=== PATIENT | male | born 1980 | race Caucasian/White ===

== ENCOUNTER 2021-04-27 15:03 | Inpatient (IN) | payer OTHER ==
[~2021-04-27] VITALS: Ht 177.8 cm; Wt 81.2 kg
[2021-04-27] VITALS (17 sets, daily range): BP systolic 100–176; BP diastolic 59–93
--- NOTE | ~2021-04-27 | HC ---
[facility] [place] [address] CONSULTATION Name: HENRY FREIRE Noah Room #: 170-8 ADM IN ..#: [id number] Admission: 04/27/21 Attend Phys: Bertram Reveles MD Discharge: Date of : 84 Report #: [id number] THIS REPORT FOR: cc: FAM - Family physician unknown FAM - Family physician unknown Hammad Escobar MD ~ cc: Ryan Lopez MD EMERGENCY ROOM CONSULTATION REASON FOR CONSULTATION: Airway obstruction. HISTORY OF PRESENT ILLNESS: The patient is a 40-year-old male who presented to the Emergency Room with inability to breathe and shortness of breath. The history that I gleaned from the Emergency Room physician is that the patient did not exhibit stridor, but in fact was not moving air. His oxygen saturation on room air when first recorded was approximately 40%. With a nonrebreathing supplemental oxygen mask, they were able to get the oxygen up to about 90 temporarily and then he fully obstructed. The Emergency Room physician attempted to intubate him, but there was a mass obstructing the larynx, so he did an emergency cricothyrotomy. A #6 endotracheal tube was inserted into the trachea. The patient has been successfully ventilated since then with oxygen saturations in the 100% range with supplemental oxygen and ventilator support. Apparently, he began to wake up and began to thrash, so he was given intravenous sedation and paralysis to avoid dislodging the airway. I was called to see him regarding this situation. At the time of my assessment, the patient was fully sedated and nonresponsive on ventilator support. I did take some history from the parents. 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 He is not , but single. He has been in generally good health. He smokes an unknown number of cigarettes per day. He does not reportedly use any recreational drugs and drinks alcohol socially. He has had hoarseness for as long as 8 years. The parents encouraged him to seek medical attention. Apparently about 2 years ago, he saw an door repairman who suggested that he stop smoking before he have a mass removed from the voice box. This is how the parents recall the conversation going. He had not been seen since that time by a physician as far as they know. PHYSICAL EXAMINATION: GENERAL: The patient is obtunded and sedated on ventilator support. NECK: A #6 endotracheal tube secured to the neck through the cricothyroid membrane. LABORATORY DATA: CBC: Hemoglobin 14.1, WBC 19.3. Chemistry [place] [address] CONSULTATION Name: HENRY FREIRE Room #: 170-8 [facility] IN [facility]#: [id number] Admission: 04/27/21 Attend Phys: Bertram Reveles MD Discharge: Date of : 84 Report #: [id number] MEDICATIONS: None reported by the family. ASSESSMENT: 1. Upper airway obstruction, apparently from hypopharyngeal or laryngeal mass, etiology uncertain. 2. Cricothyrotomy in place with stable airway. RECOMMENDATIONS: 1. We will take the patient to the operating room to convert to a traditional tracheostomy and remove the cricothyrotomy tube. 2. We will perform direct laryngoscopy and upper airway endoscopy as needed to assess the source of obstruction. 3. We will likely order CT scan once the patient is stabilized. 4. The patient will need to be cared for in the ICU until this situation is handled. By: [id number] Hammad Escobar MD /nt
--- NOTE | ~2021-04-27 | O ---
[facility] [place] [address] OPERATIVE REPORT Name: HENRY FREIRE Noah Room #: 170-8 ADM IN .R.#: [id number] Admission: 04/27/21 Attend Phys: Bertram Reveles MD Discharge: Date of : 84 Report #: [id number] THIS REPORT FOR: cc: FAM - Family physician unknown FAM - Family physician unknown Hammad Escobar MD ~ DATE OF SERVICE: 04/27/2021 SURGEON: Hammad Escobar MD PREOPERATIVE DIAGNOSES: 1. Airway obstruction, status post cricothyroidotomy. 2. Obstructive laryngeal mass. POSTOPERATIVE DIAGNOSES: 1. Airway obstruction, status post cricothyroidotomy. 2. Obstructive laryngeal mass. OPERATIVE PROCEDURES: 1. Revision tracheostomy and removal of cricothyroidotomy. 2. Direct laryngoscopy, biopsy and debulking of right sided laryngeal mass. 3. Rigid esophagoscopy. 4. Rigid bronchoscopy. ANESTHESIA: General. ESTIMATED BLOOD LOSS: 5 mL INDICATIONS FOR SURGERY: The patient is a 40-year-old male who presented to the Emergency Room with airway distress and required an emergent cricothyroidotomy by the emergency room physician due to an obstructive laryngeal mass. The patient had emergent cricothyroidotomy for management of his airway obstruction. I was consulted to see him. I advised that he be taken to the operating room for revision of the cricothyroidotomy and formal tracheostomy as well as laryngoscopy examination under anesthesia. This was discussed with the patient's family as the patient was not able to provide consent since he had been sedated and was on the ventilator. The parents gave consent. DESCRIPTION OF PROCEDURE: The patient was placed on the operating table in supine position. He was given general anesthesia through the cricothyroidotomy tube. I then performed a direct laryngoscopy with a GlideScope. There was a large obstructing mass within the endolarynx. Given what I was seeing, it was appropriate to move forward with revising the tracheostomy as planned. [address] [address] OPERATIVE REPORT Name: HENRY FREIRE Room #: 170-8 [facility] IN [facility].#: [id number] Admission: 04/27/21 Attend Phys: Bertram Reveles MD Discharge: Date of : 84 Report #: [id number] The suprasternal skin was injected with lidocaine with epinephrine. The neck was then prepped and draped in a sterile fashion. A 2 cm horizontal incision was made 2 cm above the sternal notch. I dissected through skin and subcutaneous tissue. I then split the strap muscles in the midline with cautery and scissor dissection. I retracted the strap muscles laterally and exposed the thyroid isthmus. Some of the thyroid isthmus was then divided with cautery dissection and some pretracheal fat was dissected off the trachea. This exposed the trachea just below the thyroid isthmus. I then proceeded to excise the anterior aspect of the tracheal ring with an 11 blade knife. I estimated this was probably about the fifth tracheal ring. The anterior segment of this ring was removed. I was able to view the endotracheal tube within the trachea. It was slowly pulled back from the cricothyroidotomy. A #6 Shiley cuffed fenestrated tracheostomy tube was then inserted through the tracheostomy into the trachea. The cuff was inflated. The endotracheal tube was withdrawn. The patient was then successfully ventilated with the anesthesia circuit through the tracheostomy tube. The tracheostomy tube was secured to the skin with 2-0 nylon sutures and to the neck with tracheostomy ties. I then placed a single 2-0 nylon suture in the cricothyroidotomy site to minimize the bleeding and applied a dressing to the right cricothyroidotomy site. This completed the revision of the tracheostomy with division of the thyroid isthmus. I then proceeded with endoscopy. Direct laryngoscopy was then performed with a Dedo laryngoscope. There was a large endolaryngeal mass. I lifted up the epiglottis and could feel this firm mass within the larynx. I suspended the larynx with Lewy suspension device and then palpated and manipulated the mass. The mass appeared to be arising from the right supraglottic larynx as I was able to visualize a normal left vocal cord beneath it and actually the right vocal cord even appeared somewhat normal, as this was arising from the area of about the right false vocal cord extending into the larynx. Several photographs of this were taken. I then used a large cup biopsy forceps to take several biopsies of this mass. It was firm, but soft and not easily entered with the cup biopsy forceps. These were sent in formalin and some were sent fresh. 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 I then proceeded to perform a rigid esophagoscopy. The esophagus looked normal all the way down to the distal third of the esophagus. I decompressed the stomach by inserting an oral gastric tube down through the scope into the stomach and suctioned out the gastric contents. I then introduced a rigid bronchoscope around the mass through the larynx into the subglottic larynx. The subglottic larynx and upper trachea looked normal to the level of the tracheostomy tube. I, of course, was not able to pass the rigid bronchoscope beyond the tracheostomy tube. This completed the procedure. [address] [place] [address] OPERATIVE REPORT Name: HENRY FREIRE Room #: 170-8 [facility] IN ..#: [id number] Admission: 04/27/21 Attend Phys: Bertram Reveles MD Discharge: Date of : 84 Report #: [id number] The patient was awakened in the operating room, taken to recovery room in stable condition. We will get a CT scan of his neck in the morning. He will be cared for in the hospital and when appropriate, we will consider discharge with plans for management of this endolaryngeal mass in the future. By: 1842 192 Hammad Escobar MD /nt
--- NOTE | 2021-04-27 15:25 | NUR ---
ETOMIDATE 20MG GIVEN AT 1527 ROCC 75MG GIVEN AT [address] ET TUBE, CRIC KIT 1530 6.0 ET TUBE PLACED 1531 1 MG ATROPINE GIVEN 1532 XRAY IN ROOM
[2021-04-27 16:12] LABS: CALCIUM 8.6 mg/dL (8.5-10.1); CREATININE 0.9 mg/dL (0.7-1.3); POTASSIUM 4.4 mmol/L (3.5-5.1)
[2021-04-27 16:26] LABS: ALBUMIN 4.1 g/dL (3.4-5.0); TOTAL PROTEIN 8.1 g/dL (6.4-8.2)
--- NOTE | 2021-04-27 16:45 | NUR ---
50MG ROCURONIUM ADMINISTERED
--- NOTE | 2021-04-27 17:16 | NUR ---
CENTRAL LINE PLACEMENT CONFIRMED
[2021-04-27 17:33] LABS: URINE BILIRUBIN NEGATIVE (Negative); URINE BLOOD 2+ (Negative); URINE CLARITY SL CLOUDY; URINE COLOR YELLOW; URINE GLUCOSE-RANDOM* 3+ (Negative); URINE KETONES NEGATIVE (Negative); URINE LEUKOCYTES-REFLEX NEGATIVE (Negative); URINE NITRITE-REFLEX NEGATIVE (Negative); URINE PROTEIN (DIPSTICK) 3+ (Negative); URINE SPECIFIC GRAVITY >= 1.030 (1.005-1.035); URINE UROBILINOGEN 0.2 E.U./dl (0.2-1.0)
[2021-04-27 17:43] LABS: BE(vivo) -4.7 mmol/L (-2 to +3); HCO3 24.5 mmol/L (22.0-26.0); PCO2 62.6 mmHg (35.0-45.0); PO2 82.3 mmHg (80.0-100.0); sO2 93.5 % (92.0-98.0)
[2021-04-27 17:45] LABS: ABSOLUTE NEUTROPHILS 18.3 thou/uL (1.4-8.2); BASOPHILS 0.1 % (0.0-2.0); EOSINOPHILS 0.1 % (0.0-3.0); HEMOGLOBIN 14.1 gm/dL (14.0-18.0); LYMPHOCYTES 3.4 % (24.0-44.0); MCHC 33.6 g/dL (28.0-37.0); MCV 98.2 fL (80.0-100.0); MONOCYTES 1.9 % (1.0-8.0); PLATELET COUNT 212 thou/uL (150-400); POLYS 94.5 % (36.0-66.0); RBC 4.27 mil/uL (4.50-6.00); RDW 13.1 % (10.5-14.5); WBC 19.3 thou/uL (4.0-11.0)
[2021-04-27 17:45] LABS: D-DIMER 3.57 ug/mLFEU (0.19-0.50); INR 1.24; PROTIME 13.4 Seconds (10.5-12.1)
--- NOTE | 2021-04-27 17:52 | NUR ---
[id number] PLACED FOR RESP ARREST
[2021-04-27 19:25] LABS: CASTS None Seen /LPF (None Seen); CRYSTALS None Seen /LPF (None Seen); SQUAMOUS 0-3 Few /LPF (0-3); URINE RBC 3-10 Few /HPF (NONE SEEN); URINE WBC-REFLEX 6-15 Few /HPF (0-5)
--- NOTE | 2021-04-27 20:45 | NUR ---
PT ARRIVED FROM ED AT 1810 ACCOMPANIED BY ANESTHESIA, DR PATRICIA, AND RN IVONNE. PT UNAROUSABLE ON PROPOFOL GTT AT 30 MCG/KG/MIN AND LEVOPHED GTT AT 10 MCG/MIN. REPORT GIVEN TO THIS RN AT BEDSIDE. DR DUENAS CALLED ICU AT 2036 AND SPOKE TO ELVA ENRIQUEZ REGARDING PT'S CASE AND REQUESTED PT'S PARENT S TO BE UPDATED. WILL CONTINUE TO MONITOR.
[2021-04-27 21:18] LABS: BE(vivo) -4.3 mmol/L (-2 to +3); PCO2 39.9 mmHg (35.0-45.0); PO2 276.6 mmHg (80.0-100.0); sO2 99.6 % (92.0-98.0)
[2021-04-28] VITALS (42 sets, daily range): BP systolic 79–128; BP diastolic 40–86
[2021-04-28 05:27] LABS: BE(vivo) 1.3 mmol/L (-2 to +3); HCO3 26.4 mmol/L (22.0-26.0); PCO2 43.6 mmHg (35.0-45.0); PO2 123.9 mmHg (80.0-100.0); sO2 98.4 % (92.0-98.0)
[2021-04-28 06:26] LABS: HEMATOCRIT 42.2 % (42.0-52.0); MCH 32.5 pg (26.0-34.0); MCHC 33.2 g/dL (28.0-37.0); MCV 97.9 fL (80.0-100.0); RBC 4.31 mil/uL (4.50-6.00); WBC 15.5 thou/uL (4.0-11.0)
[2021-04-28 06:41] LABS: CALCIUM 7.9 mg/dL (8.5-10.1); CREATININE 0.6 mg/dL (0.7-1.3); MAGNESIUM 1.7 mg/dL (1.8-2.4); POTASSIUM 4.4 mmol/L (3.5-5.1)
--- NOTE | 2021-04-28 07:26 | EKG ---
[address] [address] ELECTROCARDIOGRAM REPORT Name: HENRY FREIRE Room #: 240-[facility] IN [facility].#: [id number] Admission: 04/27/21 Attend Phys: Bertram Reveles MD Discharge: Date of : 84 Report #: [id number] [facility] ED Test Date: 2021-04-27 Test Time: 15:17:42 Pat Name: HENRY FREIRE Department: Room: 240 Gender: M [employer]: VEENA : 1980 Requested By: Guy Mensah Order Number: [id number] MD: Hermilo Melendez Measurements Intervals [place] Rate: 116 P: 33 IN: 119 QRS: 6 QRSD: 106 T: 10 QT: 339 QTc: 471 Interpretive Statements Sinus tachycardia Multiform ventricular premature complexes Borderline short IN interval Probable anteroseptal infarct, old No previous ECG available for comparison Electronically Signed On 04-28-2021 7:26:35 ACCOUNTANT CONTROLLER by Hermilo Melendez [email or web address] <ELECTRONICALLY SIGNED> By: Hermilo Melendez MD, [facility] 04/28/21 0726 D: [id number] Hermilo Melendez MD, FACC /EPI
--- NOTE | 2021-04-28 15:49 | 2DMMODE ---
[facility] [place] [address] 2 D/M-MODE ECHOCARDIOGRAM Name: HENRY FREIRE Room #: 240-P ADM IN [facility]#: [id number] Admission: 04/27/21 Attend Phys: Bertram Reveles MD Discharge: Date of : 84 Report #: [id number] THIS REPORT FOR: cc: FAM - Family physician unknown FAM - Family physician unknown Vishal Cardona MD ~ APPROVED REPORT Study performed: 04/28/2021 14:50:19 EXAM: Comprehensive 2D, Doppler, and color-flow Echocardiogram Patient Location: In-Patient Room #: 240 Status: routine BSA: 2.00 HR: 105 bpm BP: 96/59 mmHg Rhythm: Tachycardia Other Information Study Quality: Fair Indications Hypoxia Respiratory failure Pt on the vent/post cardiac arrest 2D Dimensions IVSd: 14.80 (7-11mm) LVDd: 39.92 mm PWd: 13.31 (7-11mm) LVDs: 22.78 (25-40mm) Left Atrium: 31.80 (27-40mm) Volumes Left Atrial Volume (Systole) Single Plane 2CH: 15.09 mL Aortic Valve AoV Peak Guevara.: 1.19 m/s AO Peak Gr.: 5.75 mmHg LVOT Max P.14 mmHg LVOT Max V: 1.02 m/s Mitral Valve [facility] [address] [place] [address] 2 D/M-MODE ECHOCARDIOGRAM Name: HENRY FREIRE Room #: 240-P ADM IN M.R.#: [id number] Admission: 04/27/21 Attend Phys: Bertram Reveles, Discharge: Date of : 84 Report #: [id number] E/A Ratio: 5.0 MV Decel. Time: 146.82 ms MV E Max Guevara.: 0.85 m/s MV A Guevara.: 0.17 m/s MV PHT: 42.58 ms Tricuspid Valve TR Peak Guevara.: 1.42 m/s RAP Estimate: 10.00 mmHg TR Peak Gr.: 8.11 mmHg RVSP: 18.00 mmHg Left Ventricle The left ventricle is normal size. There is normal LV segmental wall motion. There is normal left ventricular wall thickness. Left ventricular systolic function is hyperdynamic. LVEF is 65-70%. This study is not technically sufficient to allow evaluation of the LV diastolic function. Right Ventricle The right ventricle is normal size. The right ventricular systolic function is normal. Atria The left atrium size is normal. The right atrium size is normal. Aortic Valve The aortic valve is normal in structure. No aortic regurgitation is present. There is no aortic valvular stenosis. Mitral Valve The mitral valve is normal in structure. Trace mitral regurgitation. No evidence of mitral valve stenosis. Tricuspid Valve The tricuspid valve is normal in structure. Trace tricuspid regurgitation. PAP 18 mmHg Pulmonic Valve The pulmonary valve is normal in structure. There is no pulmonic valvular regurgitation. Great Vessels The aortic root is normal in size. IVC is dilated and collapses >50% with inspiration. Pericardium [facility] [place] [address] [address] [place] [address] 2 D/M-MODE ECHOCARDIOGRAM Name: HENRY FREIRE Room #: 240-P [facility] IN ..#: [id number] Admission: 04/27/21 Attend Phys: Bertram Reveles, Discharge: Date of : 84 Report #: [id number] There is no pericardial effusion. There is no pleural effusion. <Conclusion> The left ventricle is normal size. There is normal LV segmental wall motion. LVEF is 65-70%. The right ventricle is normal size. The left atrium size is normal. The aortic valve is normal in structure. The mitral valve is normal in structure. Trace mitral regurgitation. The tricuspid valve is normal in structure. Trace tricuspid regurgitation. PAP 18 mmHg The pulmonary valve is normal in structure. The aortic root is normal in size. There is no pericardial effusion. <ELECTRONICALLY SIGNED> By: Vishal Cardona MD 04/28/21 1549 1549 1549 Vishal Cardona MD /INF
--- NOTE | 2021-04-28 17:17 | NUR ---
PATIENT'S MOTHER LEFT PATIENT'S PHONE AND GLASSES AT THE BEDSIDE
--- NOTE | 2021-04-28 21:18 | NUR ---
PT TRANSFERRED WITH BELONGINS FROM ROOM 240 TO ROOM 242. FAMILY NOTIFIED.
[2021-04-29] VITALS (45 sets, daily range): BP systolic 89–125; BP diastolic 49–79
[2021-04-29 05:09] LABS: HEMATOCRIT 36.1 % (42.0-52.0); HEMOGLOBIN 12.2 gm/dL (14.0-18.0); MCHC 33.9 g/dL (28.0-37.0); MCV 97.4 fL (80.0-100.0); RBC 3.7 mil/uL (4.50-6.00); RDW 13.2 % (10.5-14.5); WBC 9.1 thou/uL (4.0-11.0)
[2021-04-29 05:11] LABS: CALCIUM 8.1 mg/dL (8.5-10.1); CREATININE 0.7 mg/dL (0.7-1.3); POTASSIUM 3.5 mmol/L (3.5-5.1)
--- NOTE | 2021-04-29 06:22 | NUR ---
AGREE WITH ASSESSMENTS DONE BY Javi CHURCH SN
--- NOTE | 2021-04-29 12:00 | NUR ---
PT CPAP FOR AN HOUR. PT WAS TACHYCARDIC TO 130'S AND COUGHING ON THE VENT. PT WAS OFF SEDATION FOR CPAP TRIAL. PT FOLLOWING COMMANDS AND MOUTHING AND WRITING WORDS. RESTRAINTS ARE STILL IN PLACE BECAUSE WHEN PATIENT COUGHS, HE TENDS TO GRAB HIS TRACH. GI WAS CONSULTED FOR PEG TUBE PLACEMENT. PLAN FOR PEG TUBE PLACEMENT TOMORROW PER GI. DR. ZENG WAS UPDATED ON THE ABOVE INFORMATION AND CPAP DURING HIS AFTERNOON ICU ROUNDINGS.
[2021-04-30] VITALS (32 sets, daily range): BP systolic 91–122; BP diastolic 52–90
--- NOTE | 2021-04-30 06:01 | NUR ---
Unable to draw lab from pt's [facility] central line. Lab notified at 0430 and again at 0515. Still waiting on tea room manager.
--- NOTE | 2021-04-30 06:03 | NUR ---
Agree with assessments of Javi Watson SN
[2021-04-30 06:38] LABS: HEMATOCRIT 35.6 % (42.0-52.0); HEMOGLOBIN 12.3 gm/dL (14.0-18.0); MCH 33.6 pg (26.0-34.0); MCHC 34.7 g/dL (28.0-37.0); MCV 96.7 fL (80.0-100.0); RBC 3.68 mil/uL (4.50-6.00); RDW 13.3 % (10.5-14.5); WBC 7.6 thou/uL (4.0-11.0)
[2021-04-30 06:55] LABS: CALCIUM 8.2 mg/dL (8.5-10.1); CREATININE 0.7 mg/dL (0.7-1.3); MAGNESIUM 2.2 mg/dL (1.8-2.4); POTASSIUM 3.5 mmol/L (3.5-5.1)
[2021-04-30 08:17] LABS: INR 0.91
--- NOTE | 2021-04-30 14:00 | NUR ---
Patient worked with PT and stood at side of bed, then took a few steps. Patients father was in the room and was able to witness his movement. Encouragement provided for strength training.
[2021-04-30 14:07] LABS: BE(vivo) 2.4 mmol/L (-2 to +3); HCO3 26.4 mmol/L (22.0-26.0); PCO2 38.8 mmHg (35.0-45.0); PO2 141.7 mmHg (80.0-100.0); sO2 98.9 % (92.0-98.0)
--- NOTE | 2021-04-30 14:39 | NUR ---
Peg tube being placed at this time. Per Anesthesia report, time out already performed by surgical staff/GI staff. Consent was signed by father after talking.
--- NOTE | 2021-04-30 15:07 | NUR ---
Patient was on cpap from 1230 until 1507. He tolerated well. Heart rate remained within a normal limit for himself, Respiratory rate remained within normal limits, and he was calm without respiratory distress. ABG drawn per MD request and was noted. He was returned to previous ventilator standards for PEG tube placement.
--- NOTE | 2021-04-30 19:16 | NUR ---
Patient progressing towards plan of care as evidenced by improved cpap trials received peg tube today. He is off propofol and out of restraints. He is more alert and aware. He is able to communicate all needs. Education provided throughout the day. Plan of care is to continue to assist with increased mobility, encourage range of motion, and encourage deep breath and coughing. Will continue to monitor patient vital signs. For peg tube, anesthesia provided primary monitoring with staff. Vital signs on flow sheet for peg tube placement.
[2021-05-01] VITALS (17 sets, daily range): BP systolic 96–128; BP diastolic 57–89
[2021-05-01 05:13] LABS: HEMATOCRIT 37.9 % (42.0-52.0); MCH 33.6 pg (26.0-34.0); MCHC 34.3 g/dL (28.0-37.0); MCV 97.9 fL (80.0-100.0); RBC 3.87 mil/uL (4.50-6.00); RDW 13.3 % (10.5-14.5); WBC 8.7 thou/uL (4.0-11.0)
[2021-05-01 06:03] LABS: CALCIUM 8.8 mg/dL (8.5-10.1); CREATININE 0.7 mg/dL (0.7-1.3); POTASSIUM 4.1 mmol/L (3.5-5.1)
--- NOTE | 2021-05-01 11:12 | PATH ---
[facility] [address] [place] [address] PATHOLOGY RPT PROCEDURE Name: HENRY FREIRE Noah Room #: 242-P ADM IN M.R.#: [id number] Admission: 04/27/21 Date of : 84 Discharge: Report #: [id number] Path Case #: [id number] [facility] Accession Number: [id number] . 01 Material submitted: . PART A: larynx - LARYNGEAL MASS PERMANENT PART B: larynx - LARYNGEAL MASS FRESH LYMPHOMA WORKUP . 01 Clinical history: . LARYNGEAL MASS AND AIRWAY OBSTRUCTION TRACHEOSTOMY RESPIRATORY FAILURE . 01 Diagnosis: A. Squamous mucosa and submucosa "laryngeal mass": - Superficial biopsy revealing atypical squamous proliferative lesion verruciform with hyperkeratosis, hypergranulosis and mild atypia to moderate atypia consistent with mild to moderate dysplasia - The biopsy is superficial and fragmented and hence assessment of invasion cannot be determined. - See comment. . B. Squamous mucosa and submucosa "laryngeal mass": - Focal moderate dysplasia arising in the background of low grade squamous intraepithelial lesion, mild dysplasia. - The biopsy is in fragments and hence invasion cannot be accurately assessed. - See comment. . . . . Special studies report received from [facility], [address], [address], [place], [address], on case [id number], labeled with their number [id number], dated 04/29/2021. . Flow Cytometry: Hematologic Neoplasia Assessment . Clinical History Laryngeal mass and airway obstruction . Indication For Study Evaluation for hematolymphoid neoplasia . Specimen Tissue, Laryngeal Mass . Viability [address] [address] PATHOLOGY RPT PROCEDURE Name: HENRY FREIRE Noah Room #: 242-P [facility] IN [facility].#: [id number] Admission: 04/27/21 Date of : 84 Discharge: Report #: [id number] Path Case #: [id number] 18% (7AAD exclusion) . Interpretation Tissue, Laryngeal Mass: - No immunophenotypic evidence of a non-Hodgkin B-cell or a T-cell lymphoma in a sample with markedly decreased viability (18%). See comments. - Small CD45 negative population ( 3% of sample detected) . Comments The CD45 negative population likely represent a non hematolymphoid population that can be benign (normal epithelial cells, etc.) or malignant. Hodgkin lymphoma, some large cell lymphomas and some peripheral T-cell lymphomas cannot be categorically excluded by flow cytometric analysis. Additionally, because of the low cell viability, cells of potential interest may have been nonviable and not included in the results of this analysis. Correlation with available clinical, laboratory, and morphologic data is recommended. . Populations Analyzed Abnormal Cells: 3% CD45-, CD56-, CD47- Lymphocytes: 1% B-cells: absent T-cells: no significant abnormalities of the markers tested CD4:CD8: 3.8 NK cells: 0.1% Granulocytes: 4% Present Remaining CD45 92% No significant reactivity with markers tested Negative Events/ (may represent degenerated non-hematolymphoid Debris: cells, other degenerated cells, debris, unlysed red blood cells, etc.) . Morphologic Evaluation A slide was reviewed for quality assurance assessor purposes only. . Specimen Description Total Cell Yield: 2.30 X 10 and 6 This sample is less than 50% viable which is considered suboptimal for routine clinical flow cytometry analysis. The analysis, however, is being reported because the sample is considered irreplaceable. These results must be interpreted in the context of all available clinical, laboratory, and morphologic information. . Reagent(s) Used CD2, CD3, CD4, CD5, CD7, CD8, CD10, CD11b, CD19, CD20, CD23, CD30, CD38, CD43, CD45, CD56, CD57, FMC-7, HLA-DR, kappa, [place] [address] PATHOLOGY RPT PROCEDURE Name: HENRY FREIRE Room #: 242-P [facility] IN .R.#: [id number] Admission: 04/27/21 Date of : 84 Discharge: Report #: [id number] Path Case #: [id number] [facility], [facility]. Trey Vazquez MD Pathologist . Intended Use Flow cytometry is optimally used to immunophenotypically characterize abnormal populations when they are detected. Negative flow cytometry results do not exclude lymphoma or neoplasia. Possible false negative flow cytometry results may occur in, but are not limited to, the following: neoplastic cells in Hodgkin lymphoma are not typically adequately represented by routine clinical flow cytometry; neoplastic cells may be lost or inadequately represented due to degeneration, sample processing, sampling artifact, or patchy involvement; plasma cells are typically underrepresented by flow cytometry; immature cells/blasts may be underrepresented due to hemodilution; myeloproliferative disorders and low grade myelodysplasia may not have immunophenotypic abnormalities or increased blasts. Correlation with all available clinical, laboratory, and morphologic data is always necessary to assess for the possibility of false negative flow cytometry results and to establish a diagnosis. Each marker in this analysis was used to assess for potential antigenic abnormalities or to evaluate detected abnormalities. . Any image or images that accompany this report are customer operations representative images only and should not be used to render a diagnosis. . Disclaimer(s) This test was developed and its performance characteristics determined by [employer]. It has not been cleared or approved by the Food and Drug Administration. . [facility] is a business unit of [employer] a wholly-owned subsidiary of [employer]. . This test was performed at [facility]. at [address] [facility] [address] [place], [address] - Comptometrist: Pacheco Ascencio MD. . For inquiries, the physician may contact Lab: [phone] . A complete copy of the report is on file. . Professional services performed by [email or web address]. at [address], [place] [address]. Technical services performed by [facility]. at [address], [place] [address]. . [address] [address] PATHOLOGY RPT PROCEDURE Name: HENRY FREIRE Room #: 242-P ADM IN M.R.#: [id number] Admission: 04/27/21 Date of : 84 Discharge: Report #: [id number] Path Case #: [id number] (SHA:am 04/30/2021) . [facility] 05/01/2021 1035 Local . 01 Comment: This case is also reviewed by Dr. Monica Gardner on 05/01/2021. She agrees with the above diagnosis. (DEREK/db; 04/29/2021) . 01 Electronically signed: . Davon Frausto MD, Pathologist NPI- [id number] . 01 Gross description: . A. The specimen is received in formalin, labeled "Henry Freire, laryngeal mass". Received are multiple segments of pale rosales tissue measuring 1.4 x 1.4 x 0.4 cm in aggregate dimensions. The specimen is submitted entirely in cassette A1. . B. The specimen is received fresh, labeled "Henry Freire, laryngeal mass". Received are multiple segments of pale rosales tissue measuring 1.5 x 1.3 x 0.4 cm in aggregate dimensions. A portion of the specimen is placed in RPMI solution and forwarded to an outside laboratory for flow cytometry studies. The remainder of the specimen is submitted in cassette B1. (CAA; 04/28/2021) QAC/QAC 04/29/2021 0926 Local . 01 Pathologist provided ICD-10: J98.8, J96.90 . 01 CPT . 785080, 166532 Specimen Comment: A courtesy copy of this report has been sent to [phone], [phone]- Specimen Comment: [phone] Specimen Comment: Report sent to / DR BAUTISTA Performed at: [address] [facility], [place], [place] [address] MD Davon Frausto MD Phone: [phone]
--- NOTE | 2021-05-01 17:00 | NUR ---
5511-DISCUSSED IN PT ROUNDS-PT SEEMS VERY DEPRESSED.NOT INTERACTING W STAFF MUCH HE HAS BEEN. ENC TO TAKE SOMETHING FOR PAIN EARLIER HE WAS GOING TO BE WORKING W P.T., R.T. PT MED W F[place] FOR PAIN.--VW 9100-DAD AT BEDSIDE EARLIER. MOM PRESENT NOW.--VW
[2021-05-02] VITALS (24 sets, daily range): BP systolic 92–133; BP diastolic 62–91
[2021-05-02 05:14] LABS: CALCIUM 8.9 mg/dL (8.5-10.1); CREATININE 0.8 mg/dL (0.7-1.3)
[2021-05-02 05:28] LABS: HEMATOCRIT 39.8 % (42.0-52.0); HEMOGLOBIN 13.5 gm/dL (14.0-18.0); MCH 33.2 pg (26.0-34.0); MCHC 33.8 g/dL (28.0-37.0); MCV 98.1 fL (80.0-100.0); RBC 4.05 mil/uL (4.50-6.00); RDW 13.3 % (10.5-14.5); WBC 9.5 thou/uL (4.0-11.0)
--- NOTE | 2021-05-02 18:38 | NUR ---
PT HAS BEEN MORE INVOLVED WITH CARE THIS SHIFT THAN PREVIOUSLY REPORTED. PT HAS BEEN CALM AND RELAXED ALL DAY AND HAS SHOWN NO SIGNS OF DISTRESS OR ANXIETY. PT STATUS REMAINS STABLE AND IMPROVED THROUGHOUT THE DAY. PT CURRENTLY ON T-PIECE WITH GOAL OF PROGRESSING TO TRACH SHIELD. PT'S MOTHER AND FATHER WERE AT BEDSIDE MOST OF THE DAY AND THIS RN ANSWERED THEIR QUESTIONS REGARDING PLAN AND NEXT STEPS. THIS RN CONTACTED ONCOLOGY FOR A CONSULT PER DR. ODOM AND HAVE NOT HEARD BACK YET. WILL CONTINUE TO FOLLOW PLAN OF CARE.
[2021-05-03] VITALS (24 sets, daily range): BP systolic 103–136; BP diastolic 58–92
--- NOTE | 2021-05-03 13:03 | NUR ---
PLAN OF CARE W/ CARETEAM IS TO ADVANCE PT TO TRACH SHIELD, MONITOR TOLERANCE FOR 24 HOURS OFF OF VENT OVER THE WEEKEND. PT TO FOLLOW UP WITH ONCOLOGY PER FOR A PET SCAN, IF PT WAS TO DC DURING THE WEEKEND THEN TEAM TO HELP COORDINATE A F/U SCHEDULE, IF PT IS TO DC ON , PA FROM ONCOLOGY WILL COME AND ASSIST THE PT WITH THIS PROCESS. PT IS ADVANCING TOWARDS DC, NO COMPLAINTS TODAY; EMESIS X1 AFTER PT WITNESSED ON TRACH TUBE SUCTION SECRETION, NO RELATION TO NAUSEA.
[2021-05-04] VITALS (24 sets, daily range): BP systolic 92–121; BP diastolic 56–81
--- NOTE | 2021-05-04 16:56 | NUR ---
PT HAS BEEN TOLERATING BEING ON [facility] FOR PAST 24 HOURS, DOES NOT HAVE COMPLAINTS AT THIS TIME, AWAITING TRANSFER AT THIS TIME. URINE OUTPUT INCREASED SINCE CORREA REMOVAL, URINE COLOR SLOWLY LIGHTENING FROM DARK YELLOW TO YELLOW.
[2021-05-05] VITALS (22 sets, daily range): BP systolic 95–124; BP diastolic 57–82
--- NOTE | 2021-05-05 07:40 | NUR ---
pt is a&o x 4. communicates by writing. denies pain. assessments as charted.
--- NOTE | 2021-05-05 16:46 | NUR ---
CARE TEAM INDICATED THAT PT WILL BE ABLE TO DC HOME WITH IS PARENTS ONCE MEDICALLY STABLE. THEY WERE INDICATING THAT PT WILL LIKELY DC HOME WITH TRACH AND PEG TUBE. CM MET WITH PT AND FATHER AT BEDSIDE THIS DAY. CM SPOKE WITH THEM ABOUT DME, ENTERAL TUBE FEEDING PROVIDERS, AND HH. THEY INDICATED NO PREFERANCE FOR PROVIDERS. CM ASKED IF CM COULD FAX REFERRAL TO [facility] THEY PROVIDE TRACH SUPPLIES AND ENTERAL TUBER FEEDING. THEY CONSENTED. CM FAXED REFERRAL TO [facility] FOR REVIEW. CM FOLLOWING REGARDING DC PLANNING.
[2021-05-06] VITALS (8 sets, daily range): BP systolic 11–115; BP diastolic 57–78
--- NOTE | 2021-05-06 05:42 | NUR ---
Patient is A&O x 4. follows commands. nonverbal - pt has trach and peg. pt communicates by writing. denies pain. pt is on CC TELE status. Pt tries as much as possible to be independent. pt understands his capabilities and limitation. PRN cough medication adm during shift
--- NOTE | 2021-05-06 07:35 | NUR ---
Pt transfrered to 2N room 211 Report given to receiving RN
--- NOTE | 2021-05-06 13:31 | NUR ---
TOOK OVER CARE OF THIS PATIENT AT 1200. PATIENT RESTING IN BED AT THIS TIME. PATIENT DENIES ANY PAIN AT THIS TIME. PATIENT CURRENTLY WORKING WITH OCCUPATIONAL THERAPY. PATIENT AMBULATING TO BATHROOM SBA. DENIES SOA, DIZZINESS, NAUSEA, AND VOMITING. FALL PRECAUTIONS IN PLACE AND CALL LIGHT WITHIN REACH.
--- NOTE | 2021-05-06 16:42 | NUR ---
Faxed clinical information and prescriptions to [facility] for enteral.trach supplies. Sp with Margret in Enteral who reports patient has not yet met deductable or out of pocket cost. In his insurance he has a formula exclusion so cost $398.20 a month for supplies. Sp with apartment leasing specialist who reports 6 cans of Jevity 1.5 a day. Sp with Respitory to review supplies needed for trach and size etc. reviewed with patient cost and he is agreeable to cost. Teaching at bedside tomorrow starting at 9:30 enteral then 9:30-1200 respitory teach. Mother at bedside and aware of teaching. permission for spouse to be present at teaching so both parents can be present. Rec permission from community service patrol officer.
[2021-05-07] VITALS (7 sets, daily range): BP systolic 96–114; BP diastolic 63–72
--- NOTE | 2021-05-07 03:29 | NUR ---
PT IS ALERT AND ORIENTED X4. LUNGS ARE CLEAR. HAS A TRACH TO ROOM AIR. NO RESPITRATORY DISTRESS NOTED. PT HAS A PEG TUBE AND ASSSIT WITH TUBE FEEDING AND CARE. PT HAS A COUGH AND SUCTION AT BEDSIDE IF NEEDED. DENIES ANY COMPLAINTS OF PAIN. MEDS GIVEN FOR COUGH AND SOMETHING TO HELP SLEEP HE REQUESET.OXYGEN SATURATION 93-95 PERCENT NOTED. CALL LIGHT WITHIN REACH IF NEEDS ASSISTANCE PER NURSING.
[2021-05-07] MEDS ORDERED: AUGMENTIN 875-1 EACH PO (14:32)
[2021-05-07] MEDS ORDERED: PEPCID20 MG PO (14:32)
[2021-05-07] MEDS ORDERED: ACETAMINOP160 MG/5 M PO (14:32)
[2021-05-07] MEDS ORDERED: VENTOLIN HFA 1818 GM INH (14:33)
--- NOTE | 2021-05-07 16:30 | NUR ---
Pt has been A&0x4, VS stable and afebrile throughout shift. Pt was slighty sinus tachycardic but was resting comfortably in bed. Pt reported no pain throughout shift. Pt receieved education on trach care and G-tube care; pt reported that he understood the education he recieved. Pt has had a productive cough; in the morning sputum was blood tinged but has progressed to clear thin sputum. Pts O2 saturation has been greater than 95% throughout shift on room air. Pt was discharged ar 1630. No concerns.
--- NOTE | 2021-05-07 17:03 | NUR ---
Patient to dc home today with care. Haydee did teaching at bedside today and gave supplies to patient. Parents present. Patient has apt with ENT tomorrow at 11. Faxed orders to [facility] for home health care. No further needs
== END 2021-05-07 17:41 | disposition home health service (06) | DRG 870 ==
LOC: ER 15:03 → 2N 16:34 → ICU 16:34 → EROBS 16:34 → EDBD 16:34 → ICU 20:40 → 2N 05-06 07:32
PROVIDERS: Emergency Medicine; Hospitalist; Internal Medicine Gastroenterology; Internal Medicine Pulmonary Disease; ADMIT Internal Medicine; ATTEND Internal Medicine
PROC: 0BJ08ZZ Inspection of Tracheobronchial Tree, Via Natural or Artificial Opening Endoscopic (ICD-10-PCS; principal; 2021-04-27)
PROC: 0DJ08ZZ Inspection of Upper Intestinal Tract, Via Natural or Artificial Opening Endoscopic (ICD-10-PCS; principal; 2021-04-27)
PROC: 02HV33Z Insertion of Infusion Device into Superior Vena Cava, Percutaneous Approach (ICD-10-PCS; principal; 2021-04-27)
PROC: 5A1955Z Respiratory Ventilation, Greater than 96 Consecutive Hours (ICD-10-PCS; principal; 2021-04-27)
PROC: 0CBS8ZX Excision of Larynx, Via Natural or Artificial Opening Endoscopic, Diagnostic (ICD-10-PCS; principal; 2021-04-27)
PROC: 5A12012 Performance of Cardiac Output, Single, Manual (ICD-10-PCS; principal; 2021-04-27)
PROC: 0DH68UZ Insertion of Feeding Device into Stomach, Via Natural or Artificial Opening Endoscopic (ICD-10-PCS; principal; 2021-04-27)
PROC: 0BH17EZ Insertion of Endotracheal Airway into Trachea, Via Natural or Artificial Opening (ICD-10-PCS; principal; 2021-04-27)
PROC: 0B21XFZ Change Tracheostomy Device in Trachea, External Approach (ICD-10-PCS; principal; 2021-04-27)
DX: A41.9 Sepsis, unspecified organism (principal); J96.01 Acute respiratory failure with hypoxia; I46.9 Cardiac arrest, cause unspecified; J69.0 Pneumonitis due to inhalation of food and vomit; G93.40 Encephalopathy, unspecified; R65.20 Severe sepsis without septic shock; R22.1 Localized swelling, mass and lump, neck; J98.8 Other specified respiratory disorders; J38.7 Other diseases of larynx; J38.3 Other diseases of vocal cords; R13.10 Dysphagia, unspecified; F43.22 Adjustment disorder with anxiety; I95.9 Hypotension, unspecified; Z20.822 Contact with and (suspected) exposure to COVID-19; Z28.21 Immunization not carried out because of patient refusal
CPT/HCPCS: 10078; 10081; 10203; 50101; 50386; 50398; 58937; 62110; 62900; 65130

== ENCOUNTER 2021-05-28 19:28 | Inpatient (IN) | payer OTHER ==
[~2021-05-28] VITALS: Ht 175.3 cm; Wt 78.0 kg
[~2021-05-28 19:28] MED LIST: ACETAMINOP160 MG/5 M PO; AUGMENTIN 875-1 EACH PO; PEPCID20 MG PO; VENTOLIN HFA 1818 GM INH
[2021-05-28 19:35] VITALS: BP 136/88
[2021-05-28 20:58] LABS: ABSOLUTE NEUTROPHILS 9.4 thou/uL (1.4-8.2); BASOPHILS 0.7 % (0.0-2.0); EOSINOPHILS 1.5 % (0.0-3.0); HEMATOCRIT 39.1 % (42.0-52.0); HEMOGLOBIN 13.1 gm/dL (14.0-18.0); LYMPHOCYTES 15.8 % (24.0-44.0); MCHC 33.5 g/dL (28.0-37.0); MCV 95.5 fL (80.0-100.0); MONOCYTES 7.3 % (1.0-8.0); PLATELET COUNT 279 thou/uL (150-400); POLYS 74.7 % (36.0-66.0); RBC 4.09 mil/uL (4.50-6.00); RDW 12.8 % (10.5-14.5); WBC 12.6 thou/uL (4.0-11.0)
[2021-05-28 21:18] LABS: APTT 27.7 Seconds (24.5-32.8); D-DIMER 3.01 ug/mLFEU (0.19-0.50); INR 0.92; PROTIME 10.1 Seconds (10.5-12.1)
[2021-05-28 21:25] LABS: CALCIUM 9.1 mg/dL (8.5-10.1); POTASSIUM 3.6 mmol/L (3.5-5.1)
[2021-05-28 21:29] LABS: ALBUMIN 3.5 g/dL (3.4-5.0); TOTAL BILIRUBIN 0.3 mg/dL (0.2-1.0)
[2021-05-29] VITALS (7 sets, daily range): BP systolic 100–135; BP diastolic 65–82
[2021-05-29 06:36] LABS: HEMATOCRIT 35.4 % (42.0-52.0); MCH 32.5 pg (26.0-34.0); MCHC 33.9 g/dL (28.0-37.0); MCV 95.8 fL (80.0-100.0); RBC 3.7 mil/uL (4.50-6.00); RDW 12.8 % (10.5-14.5); WBC 8.3 thou/uL (4.0-11.0)
[2021-05-29 06:57] LABS: URINE BILIRUBIN NEGATIVE (Negative); URINE BLOOD NEGATIVE (Negative); URINE CLARITY CLEAR; URINE COLOR YELLOW; URINE GLUCOSE-RANDOM* NEGATIVE (Negative); URINE KETONES NEGATIVE (Negative); URINE LEUKOCYTES-REFLEX NEGATIVE (Negative); URINE NITRITE-REFLEX NEGATIVE (Negative); URINE PROTEIN (DIPSTICK) NEGATIVE (Negative); URINE UROBILINOGEN 0.2 E.U./dl (0.2-1.0)
[2021-05-29 07:00] LABS: CALCIUM 8.6 mg/dL (8.5-10.1); CREATININE 0.9 mg/dL (0.7-1.3); POTASSIUM 3.7 mmol/L (3.5-5.1)
--- NOTE | 2021-05-29 07:44 | EKG ---
[address] [address] ELECTROCARDIOGRAM REPORT Name: HENRY FREIRE Room #: 170-7 ADM IN ..#: [id number] Admission: 05/28/21 Attend Phys: Bertram Reveles MD Discharge: Date of : 84 Report #: [id number] [facility] ED Test Date: 2021-05-28 Test Time: 19:46:56 Pat Name: HENRY FREIRE Department: Room: 170 7 Gender: M Commission Sales Associate: : 1980 Requested By: Trini Tolentino Order Number: [id number] MD: Hermilo Melendez Measurements Intervals [place] Rate: 126 P: 73 OK: 146 QRS: 104 QRSD: 83 T: 34 QT: 300 QTc: 435 Interpretive Statements Sinus tachycardia Right axis deviation Abnormal R-wave progression, late transition Compared to ECG 04/27/2021 15:17:42 Right-axis deviation now present Ventricular premature complex(es) no longer present Myocardial infarct finding no longer present Electronically Signed On 05-29-2021 7:44:25 [employer] SYSTEM[employer] ARCHITECT by Hermilo Melendez [email or web address] <ELECTRONICALLY SIGNED> By: Hermilo Melendez MD, FACC 05/29/21 0744 45 45 Hermilo Melendez MD, [facility] /EPI
--- NOTE | 2021-05-29 12:51 | NUR ---
Pt known to cm from recent inpt stay and dc home with [facility] and enteral and trach supplies per Haydee. Pt is staying with his parents who help with his care. He was recently advancing his po diet and has stopped his tube feedings. [facility] is following along. Pt is being seen by pulm/ENT. Up with supervision. Will follow along to resume HH at dc. If dc'd over the holiday weekend, fax dc instructions and dc summary to [facility] at [phone] and call their alteration tailor apprentice nurse [phone].
[2021-05-30 01:38] VITALS: BP 94/57
[2021-05-30 05:43] LABS: HEMATOCRIT 33.1 % (42.0-52.0); HEMOGLOBIN 11.1 gm/dL (14.0-18.0); MCH 32.6 pg (26.0-34.0); MCHC 33.4 g/dL (28.0-37.0); MCV 97.4 fL (80.0-100.0); RBC 3.4 mil/uL (4.50-6.00); RDW 13.2 % (10.5-14.5)
[2021-05-30 05:46] VITALS: BP 92/58
[2021-05-30 06:06] LABS: ALBUMIN 2.8 g/dL (3.4-5.0); CALCIUM 8.5 mg/dL (8.5-10.1); CREATININE 0.8 mg/dL (0.7-1.3); MAGNESIUM 1.7 mg/dL (1.8-2.4); PHOSPHORUS 4.5 mg/dL (2.5-4.9); POTASSIUM 3.8 mmol/L (3.5-5.1)
[2021-05-30] MEDS ORDERED: LEVOFLOXACIN500 MG PO (09:26)
[2021-05-30 10:05] VITALS: BP 111/70
== END 2021-05-30 10:05 | disposition home health service (06) | DRG 871 ==
LOC: ER 19:28 → EROBS 22:56
PROVIDERS: Hospitalist; Nurse Practitioner Family; ADMIT Internal Medicine; ATTEND Internal Medicine
DX: A41.9 Sepsis, unspecified organism (principal); J69.0 Pneumonitis due to inhalation of food and vomit; J98.11 Atelectasis; Z83.3 Family history of diabetes mellitus; Z82.49 Family history of ischemic heart disease and other diseases of the circulatory system; Z20.822 Contact with and (suspected) exposure to COVID-19; F17.210 Nicotine dependence, cigarettes, uncomplicated; Z93.0 Tracheostomy status